=== PATIENT | male | born 1950 | race Caucasian/White ===

== ENCOUNTER 2021-10-10 09:30 | Emergency (ER) | payer MEDICARE, BC ==
[~2021-10-10] VITALS: Ht 188 cm; Wt 122.7 kg
[2021-10-10] MEDS ORDERED: ELIQ5TAB PO (09:50)
[2021-10-10 10:15] LABS: BASO % 0.3 % (0.0-1.0); EOS # 0.1 10^3/uL (0.0-0.5); EOS % 0.6 % (0.0-3.0); HEMATOCRIT 45.2 % (42.0-52.0); HEMOGLOBIN 14.9 g/dl (13.5-17.5); LYMPH # 1.2 10^3/uL (1.5-5.0); LYMPH % 12.8 % (24.0-44.0); MEAN CORPUSCULAR HEMOGLOBIN 29.6 pg (27.0-33.0); MEAN CORPUSCULAR VOLUME 89.9 fl (80.0-96.0); MONO # 0.6 10^3/uL (0.0-0.8); MONO % 6.8 % (2.0-8.0); NEUTROPHILS # 7.4 10^3/uL (1.5-8.5); NEUTROPHILS % 78.9 % (36.0-66.0); PLATELET COUNT, AUTOMATED 162 10^3/uL (150-450); RED BLOOD COUNT 5.03 10^6/uL (4.30-6.10); WHITE BLOOD COUNT 9.4 10^3/uL (4.0-10.0)
[2021-10-10] MEDS ORDERED: propofoL 200 MG/20 ML VIAL IV.PROC PRN (10:30)
[2021-10-10] MEDS ORDERED: NS 1,000 ML IV SCH (10:30)
[2021-10-10] MEDS ORDERED: ASPIRIN 81 MG CHEW TABLET PO ONE (10:30)
[2021-10-10 10:36] LABS: CK-MB VALUE MASS 2.6 NG/ML (<3.6); MB/CK RELATIVE INDEX 3.77 (< OR =4)
[2021-10-10] MEDS ORDERED: TADA5TAB (10:52)
[2021-10-10] MEDS ORDERED: METO100T5 (10:52)
[2021-10-10] MEDS ORDERED: DOXA1TAB67 (10:52)
[2021-10-10] MEDS ORDERED: RAMI1CAP26 (10:52)
[2021-10-10] MEDS ORDERED: AMLO1TAB24 (10:52)
[2021-10-10] MEDS ORDERED: FINA5TAB2 (10:52)
[2021-10-10] MEDS ORDERED: OMEP-173 (10:52)
[2021-10-10 10:53] LABS: ALBUMIN 3.5 GM/DL (3.2-5.2); ALT/SGPT 20 U/L (12-78); BILIRUBIN,DIRECT 0.2 MG/DL (0.0-0.2); BILIRUBIN,TOTAL 0.6 MG/DL (0.2-1.0); BLOOD UREA NITROGEN 29 MG/DL (7-18); CALCIUM LEVEL 8.8 MG/DL (8.8-10.2); CARBON DIOXIDE LEVEL 27 MEQ/L (21-32); CHLORIDE LEVEL 109 MEQ/L (98-107); CREATININE FOR GFR 1.06 MG/DL (0.70-1.30); GLOMERULAR FILTRATION RATE > 60.0 (>42); GLUCOSE, FASTING 128 MG/DL (70-100); LIPASE 102 U/L (73-393); NT-PRO BNP 1600 PG/ML (<125); POTASSIUM SERUM 3.9 MEQ/L (3.5-5.1); SODIUM LEVEL 143 MEQ/L (136-145); TOTAL PROTEIN 6.6 GM/DL (6.4-8.2)
[2021-10-10 11:38] LABS: CK-MB VALUE MASS 2.2 NG/ML (<3.6); MB/CK RELATIVE INDEX 3.67 (< OR =4)
[2021-10-10 12:00] VITALS: BP 135/79
[2021-10-10] MEDS ORDERED: AMIO100T5 PO (12:02)
== END 2021-10-10 12:18 | disposition home or self-care (01) ==
LOC: M ED 09:30
DX: I48.91 Unspecified atrial fibrillation (principal); I10 Essential (primary) hypertension; Z98.84 Bariatric surgery status; Z88.0 Allergy status to penicillin; Z79.01 Long term (current) use of anticoagulants; Z79.899 Other long term (current) drug therapy

== ENCOUNTER 2023-11-29 15:13 | Emergency (ER) | payer MEDICARE, BC ==
[~2023-11-29] VITALS: Ht 190.5 cm; Wt 116.4 kg
[~2023-11-29 15:13] MED LIST: AMIO100T4 PO; AMLO1TAB24; DOXA1TAB67; ELIQ5TAB PO; FINA5TAB2; METO100T5; OMEP-173; RAMI10CA64; TADA5TAB
[2023-11-29 15:50] LABS: BASO % 0.3 % (0.0-1.0); EOS % 0.4 % (0.0-3.0); HEMATOCRIT 41.4 % (42.0-52.0); HEMOGLOBIN 13.3 g/dl (13.5-17.5); LYMPH # 1.3 10^3/uL (1.5-5.0); MEAN CORPUSCULAR HEMOGLOBIN 29.5 pg (27.0-33.0); MEAN CORPUSCULAR HGB CONC 32.1 g/dl (32.0-36.5); MEAN CORPUSCULAR VOLUME 91.8 fl (80.0-96.0); MONO # 0.6 10^3/uL (0.0-0.8); MONO % 7.4 % (2.0-8.0); NEUTROPHILS % 75.4 % (36.0-66.0); PLATELET COUNT, AUTOMATED 183 10^3/uL (150-450); RED BLOOD COUNT 4.51 10^6/uL (4.30-6.10)
[2023-11-29 16:26] LABS: BLOOD UREA NITROGEN 22 MG/DL (9-23); CALCIUM LEVEL 8.6 MG/DL (8.3-10.6); CARBON DIOXIDE LEVEL 30 MMOL/L (20-31); CHLORIDE LEVEL 107 MMOL/L (98-107); CK-MB VALUE MASS 1.4 NG/ML (<3.6); CREATININE FOR GFR 0.89 MG/DL (0.70-1.30); GLOMERULAR FILTRATION RATE > 60.0 (>42); GLUCOSE, FASTING 105 MG/DL (74-106); POTASSIUM SERUM 4.3 MMOL/L (3.5-5.1); SODIUM LEVEL 139 MMOL/L (136-145)
[2023-11-29 16:37] LABS: CPK CREATINE PHOSPHOKINASE 69 U/L (46-171); MB/CK RELATIVE INDEX 2.02 (< OR =4)
[2023-11-29 17:00] LABS: INR 1.28; PARTIAL THROMBOPLASTIN TIME 36.8 SECONDS (24.8-34.2); PROTHROMBIN TIME 15.6 SECONDS (12.5-14.5)
[2023-11-29] MEDS: METOPROLOL 5 MG/5 ML VIAL IV PRN (17:37)
[2023-11-29 17:48] VITALS: BP 120/69
[2023-11-29] MEDS: NS 1,000 ML IV SCH (18:10)
[2023-11-29] MEDS: propofoL 200 MG/20 ML VIAL IV.PROC PRN (18:19)
[2023-11-29 19:49] VITALS: BP 120/74; TEMP 98.8; O2SAT 98
== END 2023-11-29 19:53 | disposition home or self-care (01) ==
LOC: M ED 15:13
DX: I48.91 Unspecified atrial fibrillation (principal); I44.0 Atrioventricular block, first degree; I44.4 Left anterior fascicular block; I25.2 Old myocardial infarction; I45.10 Unspecified right bundle-branch block; I10 Essential (primary) hypertension; N40.0 Benign prostatic hyperplasia without lower urinary tract symptoms; Z88.0 Allergy status to penicillin; Z79.899 Other long term (current) drug therapy

== ENCOUNTER 2024-12-15 09:37 | Emergency (ER) | payer MEDICARE, BC ==
[~2024-12-15] VITALS: Ht 190.5 cm; Wt 113.1 kg
[~2024-12-15 09:37] MED LIST changes: -AMLO1TAB24; +AMLO1TAB24 PO; -DOXA1TAB67; +DOXA1TAB67 PO; -FINA5TAB2; +FINA5TAB2 PO; -METO100T5; +METO100T5 PO; -OMEP-173; +OMEP-173 PO; -RAMI10CA64; +RAMI10CA64 PO; -TADA5TAB; +TADA5TAB2 PO
[2024-12-15 10:31] LABS: PROTEIN, URINE MANUAL REFLEX 2+ mg/dL (NEGATIVE); SP GRAVITY,URINE MANUAL REFLEX 1.020 (1.002-1.035)
[2024-12-15 10:32] LABS: KETONE, URINE MANUAL REFLEX NEGATIVE (NEGATIVE); NITRITE, URINE MANUAL RFX NEGATIVE (NEGATIVE); UROBILINOGEN, UA MANUAL REFLEX NORMAL (NORMAL)
[2024-12-15 10:34] LABS: RBC, URINE MAN REFLEX TNTC /hpf (0-3); SQUAMOUS EPITHELIAL URINE RFX SMALL AMOUNT /hpf (SMALL AMT)
[2024-12-15 10:35] LABS: HYALINE CAST, URINE RFX NONE SEEN /lpf (0-1); MICROSCOPIC EXAM RFX PERFORMED
[2024-12-15 11:29] LABS: BASO # 0.0 10^3/uL (0.0-0.2); BASO % 0.3 % (0.0-1.0); EOS # 0.0 10^3/uL (0.0-0.5); EOS % 0.5 % (0.0-3.0); LYMPH # 0.8 10^3/uL (1.5-5.0); LYMPH % 13.0 % (24.0-44.0); MONO # 0.5 10^3/uL (0.0-0.8); MONO % 7.4 % (2.0-8.0); NEUTROPHILS # 5.1 10^3/uL (1.5-8.5); NEUTROPHILS % 78.5 % (36.0-66.0); PLATELET COUNT, AUTOMATED 154 10^3/uL (150-450)
[2024-12-15] MEDS ORDERED: AMIO100T11 PO (11:34)
[2024-12-15] MEDS ORDERED: HOME MED LIST COMPLETE! XX SCH (11:35)
[2024-12-15 11:38] LABS: INR 1.1
[2024-12-15 11:43] LABS: CALCIUM LEVEL 9.0 MG/DL (8.3-10.6); CARBON DIOXIDE LEVEL 30.0 MMOL/L (20-31); CHLORIDE LEVEL 104.0 MMOL/L (98-107); CREATININE FOR GFR 1.02 MG/DL (0.70-1.30); GLOMERULAR FILTRATION RATE 77.1 (>42); POTASSIUM SERUM 3.7 MMOL/L (3.5-5.1); SODIUM LEVEL 143.0 MMOL/L (136-145)
[2024-12-15] MEDS: CEFDINIR 300 MG CAP PO ONE (14:40)
[2024-12-15] MEDS ORDERED: CEFD1CAP9 PO (14:42)
[2024-12-15 14:50] VITALS: BP 145/75; TEMP 96.8; O2SAT 100
== END 2024-12-15 14:52 | disposition home or self-care (01) ==
LOC: M ED 09:37
DX: R31.9 Hematuria, unspecified (principal); N20.0 Calculus of kidney; I10 Essential (primary) hypertension; N40.0 Benign prostatic hyperplasia without lower urinary tract symptoms; Z88.0 Allergy status to penicillin; Z79.01 Long term (current) use of anticoagulants; Z79.2 Long term (current) use of antibiotics; Z79.899 Other long term (current) drug therapy